=== PATIENT | female | born 1995 | race Caucasian/White ===

== ENCOUNTER 2018-10-23 04:41 | Emergency (ER) | payer MEDICAID ==
[2018-10-23 04:49] VITALS: BP 119/82
--- NOTE | 2018-10-23 04:52 | ED Physician Documentation ---
PD HPI HEENT - Stated complaint Stated Complaint: L EAR PAIN - Chief complaint Chief Complaint: Heent - History obtained from History obtained from: Patient - History of Present Illness Timing - onset: How many days ago (2) Timing - duration: Days (2) Timing - details: Gradual onset, Still present Location: Left ear Improves: Nothing Associated symptoms: Fever, Congestion, Rhinorrhea, Cough Recently seen: Not recently seen - Additional information Additional information: This is a 22-year-old presents with her and 3-month old complaints that her left ear has been hurting and throbbing for the past 2 days. It so uncomfortable now that she cannot sleep. She had a recent cold with a sore throat, headache, fever nausea little bit of coughing. She was seen by her primary care provider not prescribed antibiotics. She feels like the cold it has improved drastically and she is no longer running fevers however the left ear pain is concerning. She had an ear infection back in 2017 and denies pressure equalization tubes. She is breast-feeding her . Review of Systems Constitutional: reports: Fever (None in the past 24 hours) Ears: reports: Ear pain Nose: reports: Congestion Throat: reports: Sore throat (Resolved) Respiratory: reports: Cough GI: denies: Abdominal Pain, Nausea, Vomiting : denies: Dysuria PD PAST MEDICAL HISTORY - Present Medications Home Medications: Ambulatory Orders Medication Instructions Recorded Confirmed Cefdinir 300 mg PO BID #20 capsule 10/23/18 - Allergies Allergies/Adverse Reactions: Allergies Allergy/AdvReac Type Severity Reaction Status Date / Time azithromycin [From Zithromax] Allergy Hives Verified 10/23/18 04:48 Penicillins Allergy Unknown Verified 10/23/18 04:48 PD ED PE NORMAL - Vitals Vital signs reviewed: Yes - General General: Alert and oriented X 3, Well developed/nourished, Other (She looks uncomfortable. She keeps reaching up to her left ear.) - HEENT HEENT: Atraumatic, PERRL, EOMI, Moist mucous membranes, Pharynx benign, Other (There is serous effusion behind the right ear but good light reflex. The left tympanic membrane appears a little dull mild erythema but landmarks could be identified.) - Cardiac Cardiac: RRR, No murmur - Respiratory Respiratory: No respiratory distress, Clear bilaterally - Derm Derm: Normal color, Warm and dry - Neuro Neuro: Alert and oriented X 3 Results - Vitals Vitals: Vital Signs - 24 hr 10/23/18 04:44 Temperature 36.9 C Heart Rate 110 H Respiratory 20 Rate Blood Pressure 119/82 H O2 Saturation 97 PD MEDICAL DECISION MAKING - ED course Complexity details: d/w patient, d/w family ED course: Discussed with patient and her family. She would like to avoid medications as much as possible given the fact that she is breast-feeding. We also talked that she may be able to clear this with using anti-inflammatories steam and popping the ear to drain any fluid and relieve the pressure. She would like to go that route before just starting antibiotics. If it is an effective she is given a back-up prescription for amoxicillin. I have recommended that she take probiotics while on the antibiotic and for 2 weeks after if she begins taking it. We did give her 1 hydrocodone tablet tonight and she will decide whether she will pump and dump the breast milk. Departure - Departure Disposition: 01 Home, Self Care Clinical Impression: Acute ear pain Qualifiers: Laterality: left Qualified Code(s): H92.02 - Otalgia, left ear Condition: Good Instructions: ED Otitis Media Serous Adult, ED Ear Infec Wait See Abx Tx Ch Follow-Up: ETHAN BOONE [Primary Care Provider] - Prescriptions: Cefdinir 300 mg PO BID #20 capsule Comments: Home tonight and rest. Take ibuprofen [id number]. I would recommend you do some steam and try and start popping the ears to drain the fluid. If the pain is not relenting or you develop a fever you should again the antibiotics. Be certain to take probiotics while you are taking the antibiotic and for 2 weeks after. If you develop any rash while on the antibiotic immediately notify your primary care provider or return if needed here.
[2018-10-23] MEDS ORDERED: HYDROcod/ACETAM 5/325 MG TABLET PO STA (05:09)
== END 2018-10-23 05:24 | disposition home or self-care (01) ==
LOC: ED 04:41
DX: H92.02 Otalgia, left ear (principal)
CPT/HCPCS: 99282; 99284; A9270

== ENCOUNTER 2023-01-28 09:34 | Outpatient (CLI) | payer BC ==
[2023-01-28 09:49] LABS: BASOPHILS % (AUTO) 0.5 %; EOSINOPHILS # (AUTO) 0.1 10^3/uL (0.0-0.7); EOSINOPHILS % (AUTO) 1.8 %; HCT - HEMATOCRIT 39.3 % (37.0-47.0); HGB - HEMOGLOBIN 13.6 g/dL (12.0-16.0); LYMPHOCYTES # (AUTO) 1.4 10^3/uL (1.5-3.5); LYMPHOCYTES % (AUTO) 22.5 %; MEAN CORPUSCULAR HEMOGLOBIN 28.7 pg (27.0-31.0); MEAN CORPUSCULAR HGB CONC 34.6 g/dL (32.0-36.0); MEAN CORPUSCULAR VOLUME 82.9 fL (81.0-99.0); MEAN PLATELET VOLUME 10.3 fL (7.9-10.8); MONOCYTES # (AUTO) 0.4 10^3/uL (0.0-1.0); MONOCYTES % (AUTO) 6.9 %; NEUTROPHILS # (AUTO) 4.1 10^3/uL (1.5-6.6); NEUTROPHILS % (AUTO) 68.1 %; PLT - PLATELET COUNT 228 10^3/uL (130-450); RED BLOOD COUNT 4.74 10^6/uL (4.20-5.40); RED CELL DISTRIBUTION WIDTH 11.8 % (12.0-15.0); WHITE BLOOD COUNT 6.1 x10^3/uL (4.8-10.8)
[2023-01-29 06:10] LABS: RPR Non Reactive (Non Reactive)
[2023-01-29 07:10] LABS: HBsAG SCREEN Negative (Negative)
[2023-01-29 08:09] LABS: HCV AB Non Reactive (Non Reactive); HIV SCREEN 4TH GENERATION Non Reactive (Non Reactive)
[2023-01-29 09:10] LABS: VARICELLA-ZOSTER AB IGG 1481 index (Immune >165)
== END 2023-01-28 09:35 | disposition home or self-care (01) ==
LOC: LAB 09:34
PROVIDERS: ATTEND Nurse Practitioner Obstetrics & Gynecology
DX: Z36.89 Encounter for other specified antenatal screening (principal)
CPT/HCPCS: 36415; 85025; 86592; 86762; 86787; 86803; 86850; 86900; 86901; 87340; 87389

== ENCOUNTER 2023-04-08 14:56 | Outpatient (CLI) | payer BC ==
--- NOTE | 2023-04-08 19:56 | Ultrasound Report ---
PROCEDURE: OB Anatomy Scan INDICATIONS: SUPERVISION OF OUTSIDE/PRIOR DATING DATA: Last menstrual period (LMP): 11/28/2022. LMP-based estimated date of delivery (MIRI): 08/27/2023. First dating scan (date and location): 01/15/2023 (images not available). Estimated date of delivery (MIRI) from first dating scan: 08/26/2023. The below data below was generated using the clinical MIRI of 08/26/2023 TECHNIQUE: Real-time scanning was performed of the fetus, with image documentation and biometric measurements. Endovaginal scanning: Not performed. COMPARISON: None. FINDINGS: General: A single living intrauterine gestation is present. Presentation: Vertex Placenta: Placental position is posterior, without previa. Amniotic fluid index: 11.6 cm, within normal limits for gestational age. heart rate: 157 beats per minute. Maternal cervical canal: 4.1 cm long; normal length is 2.5 cm or more. biometrics: Biparietal diameter: 4.2 cm, 18 weeks 5 days, 11 percentile Head circumference: 16.6 cm, 19 weeks 2 days, 19th percentile Abdominal circumference: 14.3 cm, 19 weeks 5 days, 38th percentile Femur length: 3.2 cm, 19 weeks 6 days, 44th percentile Clinically estimated gestational age: 19 weeks 6 days Composite gestational age from present scan: 19 weeks 3 days Estimated weight and percentile: 308 g, 36th percentile Measurement variability in biometric dating: +/- 10 days from 12-20 weeks gestation, +/- 2 weeks from 20-30 weeks gestation, +/- 3 weeks at 30 weeks gestation or later. Anatomic survey: Neuro: Ventricles are normal at less than 10 mm. Cisterna magna is normal at 3-11 mm. Cerebellum i s normal in size and morphology. Nuchal skin fold: Normal at less than 6 mm between 14 and 20 weeks gestational age. Face: Nose and lips, facial profile are normal. Spine: No evidence for spina bifida. Heart: 4-chambered heart is present, with normal ventricular outflow tracts. Diaphragm: Diaphragm is intact. Stomach: Left-sided stomach is present. Kidneys: No hydronephrosis. Normal is less than 5 mm in 2nd trimester, less than 7 mm in 3rd trimester. Cord: 3 vessel cord has orthotopic insertion. Bladder: Normal in size. Extremities: All 4 extremities are visualized. IMPRESSION: 1.Single live intrauterine with appropriate growth. 2. anatomic survey is within normal limits. Reviewed by: Andrew Castellanos MD on 04/08/2023 7:55 PM PST Approved by: Andrew Castellanos MD on 04/08/2023 7:55 PM PST Station ID: [id number]
== END 2023-04-08 14:57 | disposition home or self-care (01) ==
LOC: DI 14:56
PROVIDERS: ATTEND Nurse Practitioner Obstetrics & Gynecology
DX: Z34.02 Encounter for supervision of normal first pregnancy, second trimester (principal); Z36.89 Encounter for other specified antenatal screening

== ENCOUNTER 2023-05-10 15:07 | Outpatient (CLI) | payer BC ==
[2023-05-10 19:52] LABS: BASOPHILS % (AUTO) 0.5 %; EOSINOPHILS # (AUTO) 0.2 10^3/uL (0.0-0.7); EOSINOPHILS % (AUTO) 2.8 %; HCT - HEMATOCRIT 37.7 % (37.0-47.0); HGB - HEMOGLOBIN 12.4 g/dL (12.0-16.0); LYMPHOCYTES # (AUTO) 1.7 10^3/uL (1.5-3.5); LYMPHOCYTES % (AUTO) 21.5 %; MEAN CORPUSCULAR HEMOGLOBIN 29.5 pg (27.0-31.0); MEAN CORPUSCULAR HGB CONC 32.9 g/dL (32.0-36.0); MEAN CORPUSCULAR VOLUME 89.8 fL (81.0-99.0); MEAN PLATELET VOLUME 10.7 fL (7.9-10.8); MONOCYTES # (AUTO) 0.6 10^3/uL (0.0-1.0); MONOCYTES % (AUTO) 7.5 %; NEUTROPHILS # (AUTO) 5.3 10^3/uL (1.5-6.6); NEUTROPHILS % (AUTO) 67.2 %; PLT - PLATELET COUNT 212 10^3/uL (130-450); RED CELL DISTRIBUTION WIDTH 13.1 % (12.0-15.0); WHITE BLOOD COUNT 7.9 x10^3/uL (4.8-10.8)
[2023-05-10 20:10] LABS: ALBUMIN 3.7 g/dL (3.2-5.5); ALBUMIN/GLOBULIN RATIO 1.3 (1.0-2.2); BILIRUBIN,TOTAL 0.3 mg/dL (0.2-1.0); CALCIUM 8.9 mg/dL (8.5-10.3); CREATININE 0.5 mg/dL (0.6-1.3); POTASSIUM 3.9 mmol/L (3.5-4.5); TOTAL PROTEIN 6.6 g/dL (6.4-8.9)
== END 2023-05-10 15:08 | disposition home or self-care (01) ==
LOC: LAB.S 15:07
PROVIDERS: ATTEND Emergency Medicine
DX: R10.11 Right upper quadrant pain (principal)
CPT/HCPCS: 36415; 80053; 83690; 85025

== ENCOUNTER 2023-05-11 21:00 | Outpatient (CLI) | payer BC ==
[2023-05-11] MEDS: SIMETHICONE CHEW 80 MG TABLET PO PRN (21:24)
[2023-05-11] MEDS: SODIUM CHLORIDE FLUSH 0.9% 10 ML SYRINGE IVP PRN (21:31)
[2023-05-11 21:37] VITALS: BP 139/91
== END 2023-05-11 22:00 | disposition short-term general hospital (02) ==
LOC: WFO 21:00 → FBP 21:02 → WFO 22:00
PROVIDERS: ATTEND Nurse Practitioner Obstetrics & Gynecology
DX: O99.891 Other specified diseases and conditions complicating pregnancy (principal); R10.10 Upper abdominal pain, unspecified; N13.30 Unspecified hydronephrosis; Z3A.24 24 weeks gestation of pregnancy
CPT/HCPCS: 36415; 76705; 80053; 81003; 83690; 85025; 93005; 99284; A9270; 59025; 81001; 87086; 99214

== ENCOUNTER 2023-05-11 21:59 | Emergency (ER) | payer BC ==
--- NOTE | 2023-05-11 22:16 | ED Physician Documentation ---
PD HPI ABD PAIN - Stated complaint Stated Complaint: PREG/ABD PX - Chief complaint Chief Complaint: General - History obtained from History obtained from: Patient - Additional information Additional information: HPI from patient. Patient complains of episodic epigastric pain over the past 4 days. The first 2 episodes were associated with p.o. intake, but gurvinder's episode, which began at approximately 6 PM, was while at home at rest and not during p.o. intake. The pain radiates to her back and is associated with nausea but no vomiting. She has not had this pain before 4 days ago. The patient is currently , 24 weeks 4 days. . Patient denies vaginal bleeding. She has not noticed decreased movement. She was initially sent from front desk host triage to air lift operator floor and was assessed there, cleared from air lift operator standpoint and thus sent to ED for further evaluation. Review of Systems Constitutional: denies: Fever, Chills, Sweats GI: reports: Abdominal Pain, Nausea. denies: Vomiting, Constipation, Diarrhea : reports: Now EGA (24w4d). denies: Dysuria PD PAST MEDICAL HISTORY - Past Medical History Past Medical History: No - Past Surgical History Past Surgical History: Yes - Allergies Allergies/Adverse Reactions: Allergies Allergy/AdvReac Type Severity Reaction Status Date / Time azithromycin [From Zithromax] Allergy Hives Verified 05/11/23 22:12 Penicillins Allergy Unknown Verified 05/11/23 22:12 - Social History Does the pt smoke?: No Smoking Status: Never smoker Does the pt drink ETOH?: Yes Does the pt have substance abuse?: No PD ED PE NORMAL - Vitals Vital signs reviewed: Yes - General General: Alert and oriented X 3, No acute distress, Well developed/nourished - Cardiac Cardiac: RRR, No murmur - Respiratory Respiratory: No respiratory distress, Clear bilaterally - Abdomen Abdomen: Soft, Non distended, Other (mild epigastric tenderness without rebound or guarding) Results - Vitals Vitals: Vital Signs - 24 hr 05/11/23 05/11/23 05/11/23 22:00 22:53 23:39 Temperature 36.4 C L Heart Rate 86 77 98 Respiratory 17 18 18 Rate Blood Pressure 126/76 122/82 H 126/82 H O2 Saturation 99 97 98 Oxygen O2 Source Room air - Labs Labs: Laboratory Tests 05/11/23 05/11/23 05/11/23 22:20 22:52 22:52 WBC 8.5 RBC 3.99 L Hgb 11.7 L Hct 35.0 L MCV 87.7 MCH 29.3 MCHC 33.4 RDW 12.7 Plt Count 207 MPV 10.2 Neut # (Auto) 5.5 Lymph # (Auto) 2.1 [place] # (Auto) 0.6 Eos # (Auto) 0.2 Baso # (Auto) 0.0 Absolute Nucleated RBC 0.00 Nucleated RBC % 0.0 Sodium 135 Potassium 3.6 Chloride 105 Carbon Dioxide 23 Anion Gap 7.0 BUN 7 Creatinine 0.5 L Estimated GFR (MDRD) 149 Glucose 89 Calcium 9.1 Total Bilirubin 0.3 AST 10 ALT 10 Alkaline Phosphatase 68 Total Protein 6.4 Albumin 3.5 Globulin 2.9 Albumin/Globulin Ratio 1.2 Lipase 34 Urine Color YELLOW Urine Clarity CLEAR Urine pH 7.5 Ur Specific [place] 1.015 Urine Protein NEGATIVE Urine Glucose (UA) NEGATIVE Urine Ketones NEGATIVE Urine Occult Blood NEGATIVE Urine Nitrite NEGATIVE Urine Bilirubin NEGATIVE Urine Urobilinogen 0.2 (NORMAL) Ur Leukocyte Esterase NEGATIVE Ur Microscopic Review NOT INDICATED Urine Culture Comments NOT INDICATED - Rads (name of study) RUQ US Relevant Findings:: Prelim report reviewed, See rad report PD Medical Decision Making - ED course Complexity details: reviewed results, re-evaluated patient, considered differential, d/w patient ED course: No concerning or diagnostic findings on CBC, ER abdominal panel. The only abnormalities on these panels are insignificant (hemoglobin is 11.7, slightly below normal range; creatinine is low at 0.5). Normal urinalysis. A right upper quadrant ultrasound is performed and this is only notable for "mild right hydronephrosis is seen which may be secondary to " (per radiologist interpretation). There is no evidence of gallstones. Renal colic seems unlikely given her pain is mostly in the epigastric area. Furthermore, there is no hematuria on the urinalysis. I discussed the test results with the patient and conversation turns to pain control. Patient tells me that she would prefer to have take-home pain medication so that she can drive home if the plan is discharge at this point. The patient is not in any apparent distress, and abdominal exam is unchanged (epigastric tenderness that is mild and without rebound/guarding). Further emergent testing unlikely to yield specific diagnosis, particularly that would require targeted/specific treatment. Patient is given take-home pack of vicodin but declines rx. Return precautions are discussed and she is instructed to contact her air lift operator to arrange for next available appointment for reevaluation. Departure - Departure Disposition: 01 Home, Self Care Clinical Impression: Abdominal pain in Qualifiers: Trimester: second trimester Qualified Code(s): O26.892 - Other specified related conditions, second trimester Condition: Good Instructions: ED Epigastric Pain UKO Comments: There were no concerning or diagnostic findings on tonight's tests including the blood tests, urinalysis, and the ultrasound. The cause of your abdominal pain is not apparent at this time. Contact your LINE INSPECTOR in the morning when the office opens to arrange for next available appointment for reevaluation. Forms: PCP List Discharge Date/Time: 05/12/23 00:30
--- NOTE | 2023-05-11 22:19 | PROVIDER PROGRESS NOTE ---
- HPI Chief Complaint: GI symptoms - Procedures OB Procedure Performed: NST NST Procedure: FHR baseline 140s,moderate variability, + accels, no decels No contractions appreciated via tocometry - Plan Plan: S: Zulma presents to [facility] to rule out labor secondary to upper abdominal pain that radiates to her back. She denies vaginal bleeding, leakage of fluid or contractions. She reports the pain is constant and periods of increase severity but remains consistently present. She states she has had intermittent kevin woodson contractions throughout her second trimester but states they occur approximately once every 3-5 days and are mild. She has a hx of 2 unmedicated vaginal deliveries and states she is very confident that this pain is not the same as labor pain. She reports +FM. She initially noted the pain 4 days ago and states it was 9/10 on a pain scale. She had not been exposed to anyone with similar symptoms. She states she initially thought she over ate and then induced vomiting which she felt relieved some of the pressure but the pain remained. She was eventually able to rest and fall asleep as the pain subsided. The following morning when she woke up the pain was there but more dull and she was easily able to cope. She states following lunch her pain increased again. She presented to urgent care and was told her pain was related to acid reflux. She was encouraged to take TUMS and Pepcid which did not improve her pain. She reports tonight before dinner she noticed the pain starting again. She ate a couple of potatoes and a small salad with non-fat dressing and then approximately 30 minutes later the pain became severe. Her returned home from work and she felt worried enough to present to the ED for evaluation. She denies vaginal discharge. She denies urinary symptoms, she reports normal BMs. O: NST reactive/appropriate for 24 wks gestation FHR baseline 140s, moderate variabiilty, + accels, no decels No contractions appreciated via tocometry Heart RRR w/o M/G/R, lungs CTAB Abdomen gravid, soft A: 27yo @ 24.4wks gestation Upper, mid-abdominal pain P: labor ruled out Pt released from OB triage to emergency department.
[2023-05-11 23:14] LABS: BASOPHILS % (AUTO) 0.5 %; EOSINOPHILS # (AUTO) 0.2 10^3/uL (0.0-0.7); EOSINOPHILS % (AUTO) 2.7 %; HGB - HEMOGLOBIN 11.7 g/dL (12.0-16.0); LYMPHOCYTES # (AUTO) 2.1 10^3/uL (1.5-3.5); LYMPHOCYTES % (AUTO) 25.1 %; MEAN CORPUSCULAR HEMOGLOBIN 29.3 pg (27.0-31.0); MEAN CORPUSCULAR HGB CONC 33.4 g/dL (32.0-36.0); MEAN CORPUSCULAR VOLUME 87.7 fL (81.0-99.0); MEAN PLATELET VOLUME 10.2 fL (7.9-10.8); MONOCYTES # (AUTO) 0.6 10^3/uL (0.0-1.0); MONOCYTES % (AUTO) 7.2 %; NEUTROPHILS # (AUTO) 5.5 10^3/uL (1.5-6.6); NEUTROPHILS % (AUTO) 64.1 %; PLT - PLATELET COUNT 207 10^3/uL (130-450); RED BLOOD COUNT 3.99 10^6/uL (4.20-5.40); RED CELL DISTRIBUTION WIDTH 12.7 % (12.0-15.0); WHITE BLOOD COUNT 8.5 x10^3/uL (4.8-10.8)
[2023-05-11 23:17] LABS: ALBUMIN 3.5 g/dL (3.2-5.5); ALBUMIN/GLOBULIN RATIO 1.2 (1.0-2.2); BILIRUBIN,TOTAL 0.3 mg/dL (0.2-1.0); CALCIUM 9.1 mg/dL (8.5-10.3); CREATININE 0.5 mg/dL (0.6-1.3); POTASSIUM 3.6 mmol/L (3.5-4.5); TOTAL PROTEIN 6.4 g/dL (6.4-8.9)
--- NOTE | 2023-05-11 23:48 | Ultrasound Report ---
PROCEDURE: Abdomen Limited INDICATIONS: abd. pain TECHNIQUE: Real-time focused scanning was performed of the abdomen, with image documentation. COMPARISONS: None. FINDINGS: Liver: Suboptimally visualized secondary to bowel gas. Liver is normal in size and homogeneous in ech otexture. Gallbladder: Unremarkable. Biliary ducts: Intrahepatic bile ducts are non-dilated. Extrahepatic bile duct caliber measures 2.5 mm. Normal is 6-7 mm or less in diameter, or 10 mm or less post-cholecystectomy. Pancreas: Not well visualized due to overlying bowel gas. Right kidney: Normal in size and echotexture. Right kidney measures 10.9 cm long. Mild right hydrone phrosis, may be secondary to . No nephrolithiasis. No solid masses. No complex renal cystic lesions which require follow-up. IVC: Intrahepatic inferior vena cava is patent. Miscellaneous: No free abdominal fluid. Intrauterine is seen with heart rate of 145. IMPRESSION: 1.Mild right hydronephrosis is seen which may be secondary to . 2.Intrauterine is seen with heart rate of 145. Reviewed by: Walker Lawson MD on 05/11/2023 11:47 PM PST Approved by: Walker Lawson MD on 05/11/2023 11:47 PM PST Station ID: [id number]
[2023-05-12] MEDS: HYDROcod/ACET 5/325 Prepack 4 PO STA (00:06)
[2023-05-12 00:17] VITALS: BP 126/82; O2SAT 98
[2023-05-12 00:21] LABS: BILIRUBIN,URINE NEGATIVE (NEGATIVE); GLUCOSE, URINE (UA) NEGATIVE (NEGATIVE); KETONES,URINE (UA) NEGATIVE (NEGATIVE); LEUKOCYTE ESTERASE, URINE NEGATIVE (NEGATIVE); NITRITE,URINE NEGATIVE (NEGATIVE); OCCULT BLOOD,URINE NEGATIVE (NEGATIVE); PH,URINE 7.5 PH (5.0-7.5); PROTEIN,URINE NEGATIVE (NEGATIVE); UROBILINOGEN,URINE 0.2 (NORMAL) E.U./dL (NORMAL)
[2023-05-12 00:23] LABS: CLARITY,URINE CLEAR (CLEAR)
== END 2023-05-12 00:30 | disposition home or self-care (01) ==
LOC: ED 21:59
DX: O99.891 Other specified diseases and conditions complicating pregnancy (principal); N13.30 Unspecified hydronephrosis; Z3A.24 24 weeks gestation of pregnancy
CPT/HCPCS: 36415; 80053; 81001; 81003; 83690; 85025; 87086; 93005; 99284

== ENCOUNTER 2023-05-17 08:17 | Outpatient (CLI) | payer BC ==
[2023-05-17 09:27] LABS: HCT - HEMATOCRIT 35.7 % (37.0-47.0); MEAN CORPUSCULAR HEMOGLOBIN 29.6 pg (27.0-31.0); MEAN CORPUSCULAR HGB CONC 33.6 g/dL (32.0-36.0); MEAN CORPUSCULAR VOLUME 87.9 fL (81.0-99.0); MEAN PLATELET VOLUME 9.9 fL (7.9-10.8); RED BLOOD COUNT 4.06 10^6/uL (4.20-5.40); RED CELL DISTRIBUTION WIDTH 12.7 % (12.0-15.0); WHITE BLOOD COUNT 7.2 x10^3/uL (4.8-10.8)
== END 2023-05-17 08:18 | disposition home or self-care (01) ==
LOC: LAB 08:17
PROVIDERS: ATTEND Nurse Practitioner Obstetrics & Gynecology
DX: Z36.9 Encounter for antenatal screening, unspecified (principal)
CPT/HCPCS: 36415; 82950; 85027

== ENCOUNTER 2023-08-25 12:05 | Inpatient (IN) | payer BC ==
--- NOTE | 2023-08-25 12:08 | HISTORY & PHYSICAL EXAMINATION ---
Admit History - : 3 Parity: 2 Premature: 0 Ectopic: 0 : 0 Care: positive: [facility] Risk/History: positive: None Complications This : positive: None Smoking Status: Never smoker - Mother's Labs Mother's Blood Type: positive: B Mother's RH: positive: Negative GBS: positive: Group B Step Negative Rubella Status: positive: Immune - Other Maternal History Other Maternal History: HPI: This 27 yo @ 39+5weeks by 8+1 week ultrasound. She presented to clinic today for routine care. [place] intermittently for the past several days. She was doing the "[place] circuit" last night and noticed onset of leakage of clear vaginal fluid at 2300 which has continued and feels different than her mucus plug, denies any recent intercourse. She was encouraged to make arrangements to be admitted to [facility] for labor and delivery management. She has been a patient of [facility] for the duration of her which has remained uncomplicated No Headache, visual changes or right upper quadrant abdominal pain. Denies nausea and vomiting. Denies urinary urgency or dysuria. ROS: All other symptoms reviewed and were negative except per HPI. Dating criteria: LMP: 11/28/2022 ---> MIRI by LMP 09/04/2023 (not concordant with [place] dating) Initial u/s @ 8+1 wks dates with MIRI 08/27/2023 serial Exams agree OB Hx: Term NSVB x2. SAB x0. Last PAP 2020- WNL. Denies history of gonorrhea, chlamydia genital herpes, oral herpes or other STI. Sexual partner does NOT have HSV (oral or genital) G1: (06/18/2018) . Small laceration with repair G2: (09/13/2020) Induction, some perineal repair G3: current Medical Hx: Recurrent ovarian cysts Surgical Hx: R ovarian cyst removal 2020. Social Hx: Monogamous with male partner. Stopped drinking alcohol due to . Denies current use of tobacco, marijuana or other recreational drugs. Former tobacco user. Reports that she is safe in current relationship. Family Hx: No significant hx. Denies family history of congenital anomalies, Cystic Fibrosis or chromosomal abnormalities Allergies: Penicillin, erythromycin rash Medications: B12 (500mcg/gummy), vitamin Prepregnancy BMI: 30 Course: Blood type = B negative, Rhogam given 06/11/23 Antibody negative . Rubella immune, Varicella Immune Hep B neg, Hep C neg HIV non-reactive, RPR non-reactive GCCT negative Genetic screening: Declines genetic testing, carrier screening and MsAFP. FAS: Date WNL (with exception of) F/U u/s: Posterior placenta, no previa, size c/w (EFW 36%). AARTI WNL. 3VC. glucola: 130 Tdap: 06/11/2023 GBS NEG Physical exam: Normocephalic, atraumatic Heart RRR w/o M/G Lungs CTAB Abdomen gravid, soft, nontender. EFW 3700g FHR baseline 150, moderate variability, + accelerations, no decelerations Contractions palpate moderate every minutes with soft resting tone SVE 4/80/-2, vertex, membranes ruptured, possible forebag Bilateral LE's no edema Mood is good. Assessment: HPI: This 27 yo @ 39+5weeks by 8+1 week ultrasound. Early labor FHR 150's, Cat I GBS NEG Plan: Admit to [facility] for labor management. Given potential time since ROM, and patient agreement with augmentation, 25mcg misoprostol x1 dose @1300 then reevaluation . Continuous EFM, intermittent FM later if indicated. Jacuzzi PRN. Nitrous oxide PRN. Anticipate . 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
[2023-08-25] MEDS ORDERED: lidocaine 1% 20 ML MDV ID PRN (12:10)
[2023-08-25] MEDS ORDERED: OXYTOCIN 10 UNIT/ML VIAL IM PRN (12:10)
[2023-08-25] MEDS ORDERED: TERBUTALINE 1 MG/ML VIAL SUBQ PRN (12:10)
[2023-08-25] MEDS ORDERED: TRANEXAMIC ACID IN NACL 1,000 MG/100 ML BAG IV PRN (12:10)
[2023-08-25] MEDS ORDERED: SODIUM CHLORIDE FLUSH 0.9% 10 ML SYRINGE IVP PRN (12:10)
[2023-08-25] MEDS ORDERED: miSOPROStoL 200 MCG TABLET PR PRN (12:10)
[2023-08-25] MEDS ORDERED: LACTATED RINGERS 1,000 ML IV PRN (12:10)
[2023-08-25] MEDS ORDERED: CARBOPROST TROMETHAMINE 250 MCG/ML VIAL IM PRN (12:10)
[2023-08-25] MEDS ORDERED: fentaNYL 100 MCG/2 ML VIAL IVP PRN (12:10)
[2023-08-25] MEDS ORDERED: METHYLERGONOVINE 0.2 MG/ML VIAL IM PRN (12:10)
[2023-08-25 12:55] LABS: BASOPHILS % (AUTO) 0.3 %; EOSINOPHILS # (AUTO) 0.1 10^3/uL (0.0-0.7); EOSINOPHILS % (AUTO) 1.3 %; HCT - HEMATOCRIT 34.1 % (37.0-47.0); HGB - HEMOGLOBIN 11.1 g/dL (12.0-16.0); LYMPHOCYTES # (AUTO) 1.5 10^3/uL (1.5-3.5); LYMPHOCYTES % (AUTO) 19.2 %; MEAN CORPUSCULAR HEMOGLOBIN 27.3 pg (27.0-31.0); MEAN CORPUSCULAR HGB CONC 32.6 g/dL (32.0-36.0); MONOCYTES # (AUTO) 0.5 10^3/uL (0.0-1.0); MONOCYTES % (AUTO) 6.9 %; NEUTROPHILS # (AUTO) 5.6 10^3/uL (1.5-6.6); NEUTROPHILS % (AUTO) 71.8 %; PLT - PLATELET COUNT 208 10^3/uL (130-450); RED BLOOD COUNT 4.06 10^6/uL (4.20-5.40); RED CELL DISTRIBUTION WIDTH 12.8 % (12.0-15.0); WHITE BLOOD COUNT 7.8 x10^3/uL (4.8-10.8)
[2023-08-25] MEDS: miSOPROStoL 100 MCG TABLET BC SCH (12:57)
--- NOTE | 2023-08-25 17:47 | PROVIDER PROGRESS NOTE ---
Labor Progress Note - Uterine Monitoring Uterine Monitoring Mode: positive: External toco (Note created in error)
--- NOTE | 2023-08-25 17:48 | PHARMACY PROGRESS NOTE ---
- Best Possible Medication History Admit Date and Time: 08/25/23 1210 Processed by: Pharmacy Medications reviewed in ED?: No Medication History completed: Yes Patient Interview: Pt unable to participate Secondary Source(s): Physician records, Pharmacy records, Insurance records As the person ultimately responsible for medication therapy, providers are able to order a medication from an existing home medication list in [facility] via the "Reconcile Routine" prior to Confirmation of that medication by database support. Such practice is discouraged except when the physician, in their clinical judgment, deems that a medical need exists for a medication without regard to previous use.
--- NOTE | 2023-08-25 17:54 | PROVIDER PROGRESS NOTE ---
Labor Progress Note - Uterine Monitoring Uterine Monitoring Mode: positive: External toco Contraction Frequency (min/apart): 1-4.5 Contraction Intensity: positive: Mild Uterine Resting Tone: positive: Soft - Monitoring Monitor Mode: positive: External ultrasound Heart Rate Baseline: 140 Heart Rate Variability: positive: Moderate (6-25 bmp) Accelerations: positive: Present, 15x15 Decelerations: positive: None Strip Review: positive: Category I - Vaginal Exam Dilation (in cm): 5.5 Effacement (%): 80 Station: -2 Cervical Position: Midposition - Labor Progress Note Labor Progress Note/Additional Text: S: Ambulating in room and changing positions frequently. Describes her discomfort as minimal. Laughing with support persons. Just ate her evening meal. Coping well. Feels well informed. O: FHR baseline 140-145, moderate variability, + accels, - decels. Contractions irregular 1-4.5cm SVE 5.5/80/-2, midposition Vertex. Likely high leak. AROM of forebag S/p 1 doses 25mcg BC misoprostol A: 27yo @ 38+5wks gestation by 1st trimester U/S FHR Category I Rh Neg P: Wait 1 hour following AROM of forebag. Then misoprostol dose repeated. Continuous monitoring. Nitrous per patient request encourage continued movement and positional change Anticipate .
[2023-08-25] MEDS: SODIUM CHLORIDE FLUSH 0.9% 10 ML SYRINGE IVP SCH (19:59)
[2023-08-25] MEDS: OXYTOCIN/SODIUM CHLORIDE 500 ML IV PRN (20:06)
--- NOTE | 2023-08-25 20:22 | DELIVERY NOTE ---
Delivery Note - Labor Labor: positive: Spontaneous - Delivery Method Delivery Method: positive: Spontaneous vaginal delivery - Presentation Presentation: positive: ANDREW - right occiput anterior - Nuchal Cord Nuchal Cord: positive: None - Anesthetic Anesthetic Type: - Amniotic Fluid Description Amniotic Fluid Description: positive: Clear - Laceration Laceration: positive: None - Littlefield Little[place]: positive: Bulb syringe, Stimulated, Warmed, [place] used [place] sex: positive: Female - Cord Cord: positive: 3 vessels - Placenta Placenta: positive: Intact - Estimated Blood Loss Estimated Blood Loss (in cc): 350 - Post Delivery Events Post Delivery Events: positive: Shoulder dystocia - Delivery Comments (Free Text/Narrative) Delivery Comments (Free Text/Narrative): This 27-year-old, G 3 P 2 . @ 39+ 5 gestation by first trimester ultrasound. Presented @ after SROM at approximately X last night. Cervix was 4/80/-2. Vertex presentation by liam's and exam. GBS negative, treatment not indicate d. FHR pattern demonstrated 140 baseline in a category I prior to second stage. Normal labor course. Coped well with nitrous Forebag ruptured @ 1707. She then progressed to began pushing (and presumed complete) and ready to deliver. : Patient pushed and delivered in hands and knees. After assessing the patient and attempting rotational maneuvers, the anterior shoulder had already been rotated out of impaction, but the large body was not delivering with gentle traction. I was able to place my fingers under the posterior axilla and deliver the posterior shoulder with gentle traction. The rest of the body delivered thereafter and was placed on mother's chest where she was stimulated and responded well. In total 30 seconds elapse for delivery of head to delivery of body including resolution of shoulder dystocia. Delivery of viable female infant on 08/25/2023 @ 1941. No nuchal cord. The was placed on maternal abdomen, stimulated, dried and placed skin to skin. Apgars 8 @ 1 min, and 9 @ 5 minutes. Pitocin administered via IV for hemostasis. The umbilical cord was allowed to stop pulsating at which time it was doubly clamped by delivering provider and cut by FOB. 3VC. Cord blood was obtained. Fundal massage and gently cord traction applied for active management of the third stage, placenta delivered spontaneously and intact @1950. EBL 350cc. Placenta was WAS NOT sent to pathology. Thirty units of Pitocin were added to the IV fluid and allowed to run freely. Uterine massage was performed until uterus was deemed firm. Upon re-inspection the patient was hemostatic. Uterus again massaged and found to be firm. Needle and sponge counts were correct. Vaginal, rectal, perineal tissue intact. Skin to skin initiated. Family bonding well. Both mother and baby are in stable condition. SCOTTIE Parekh, Student Nurse Research Scholar
[2023-08-25] MEDS: ACETAMINOPHEN 500 MG TABLET PO PRN (20:42)
[2023-08-25] MEDS: IBUPROFEN 800 MG TABLET PO SCH (20:45)
--- NOTE | 2023-08-26 10:11 | Discharge Plan ---
Discharge Plan Problem Reviewed?: No Disposition: Home, Self Care Condition: Good Diet: Regular Activity Restrictions: No Restrictions Shower Restrictions: No Driving Restrictions: No Weight Bearing: Full Weight Instruction Topics: Vaginal After, Nutrition , Self Care No Smoking: If you smoke, Please STOP! Call for help. Follow-up with: Vanessa Rothman CNM, SCOTTIE [Provider Admit Priv/Credential] - 1 Week
--- NOTE | 2023-08-26 10:23 | DISCHARGE SUMMARY ---
Discharge Summary Condition at Discharge: Good Discharge Disposition: 01 Home, Self Care - HOSPITAL COURSE Hospital Course: Date of Admission: 08/25/2023 Date of Discharge: 08/26/2023 Diagnosis on Admission: 1. 27yo @ 39.5wk gestation by 8.1wk U/S 2. Early labor 3. SROM 4. FHR Category I 5. GBS negative Diagnosis on Discharge: 1. 27yo PPD#1 s/p TSVB viable female 2. 3. Normal recovery Brief History: She is a patient of [facility] who presented on 08/25/2023 with SROM and in early labor. Cervix was 4/80/-2 and vertex with leakage of clear vaginal fluid. FHR maintained Category I pattern throughout labor. She received 1 dose of 25mcg of BC misoprostol followed by release of forebag of amniotic membranes. She progressed to spontaneously deliver a viable female on 08/25/2023 at 1941. Apgars were 8/9 at 1 and 5 minutes respectively. Perineum intact and EBL 350mL. She has been doing well in her course. She is ambulating and tolerating a regular diet. She is urinating without difficulty and her lochia is normal. Her pain is well controlled with oral medications. She is without difficulty and she is bonding well with her baby. She will be discharged home today on day #1 with instructions to continue taking her vitamin while and to continue taking ibuprofen and tylenol over the counter as needed for pain management. She intends to follow up with myself in 1 week for routine visit or sooner if needed. She has been given precautions to call if she has any worsening fevers, chills, abdominal pain, increased vaginal bleeding or foul smelling vaginal lochia. Physical exam: Normocephalic, atraumatic. Heart RRR w/o M/G/R, lung CTAB. Abdomen soft and nontender, fundus firm a U-1, perineum intact, light lochia rubra. Bilateral LE's trace edmea. Mood is good. - ALLERGIES Allergies/Adverse Reactions: Allergies Allergy/AdvReac Type Severity Reaction Status Date / Time azithromycin [From Zithromax] Allergy Hives Verified 05/11/23 22:12 Penicillins Allergy Unknown Verified 05/11/23 22:12 - MEDICATIONS Home Medications: Ambulatory Orders Medication Instructions Recorded Confirmed Cyanocobalamin (Vitamin B-12) 500 mcg PO DAILY 08/25/23 08/25/23 [Vitamin B-12] Famotidine [Pepcid] See Rx Instructions .ROUTE .COMPLEX 08/25/23 08/25/23 Pnv No.95/Ferrous Fum/Folic AC 1 tab PO DAILY 08/25/23 08/25/23 [ Tablet] - LABS Result Diagrams: 08/25/23 12:30
[2023-08-26 12:13] VITALS: BP 123/74; O2SAT 98
--- NOTE | 2023-08-26 18:01 | Labor Flowsheet ---
Labor Flowsheet Datetime Report Generated by CPN: 08/26/2023 18:00 Datetime: 08/26/2023 12:05 VITAL SIGNS NBP Sys/Miracle/Mean (mmHg): 123 : 74 : 85 Pulse: 97 LaborFlag: Labor Datetime: 08/25/2023 21:14 Membranes Ruptured Date/Time: 08/25/2023 17:07 Datetime: 08/25/2023 19:51 Stage 2 Comments: placenta 1951 Datetime: 08/25/2023 19:40 ASSESSMENT A Monitor Mode: Telemetry Variability: Moderate 6-25 bpm Comments: FHT seen 120s-150 PATIENT CARE Oxygen Method: Room Air Datetime: 08/25/2023 19:35 UTERINE ACTIVITY Monitor Mode: External Frequency (min): 2 Quality: Strong Duration (sec): 80-120 Pattern: Normal: <= 5 Contractions in 10 Minutes Resting Tone (Palpate): Relaxed Datetime: 08/25/2023 19:30 FHR Baseline Rate : 145 Accelerations: None Decelerations: Variable Actions for Decelerations: Hands and Knees Category: Category II Datetime: 08/25/2023 19:28 STAGE 2 Pushing: Urge to Push; Involuntary Pushing Pushing Position: Pushing with Contractions Pushing Progress: Descent with Pushing Datetime: 08/25/2023 19:18 Pain Relief Measures: Comfort Measures Pain Coping: Breathing Through Contractions Pain Assessment Comments: using nitrous, moaning through contractions Comfort Measures: Breathing/Relaxation Datetime: 08/25/2023 19:17 VAGINAL EXAM Dilatation (cm): 8.0 Effacement (%): 100 Station: -1 Exam by: Sotero WALL AND F[employer]OR TILER Datetime: 08/25/2023 18:49 COMMUNICATION Communication: Provider at Bedside Communication Comments: Stephan Bey at bedside Datetime: 08/25/2023 18:46 Patient Position/Activity: Hands-Knees Patient Care Comments: Nitros started Datetime: 08/25/2023 18:20 Vaginal Exam Comments: OK for pt. to go to br Datetime: 08/25/2023 17:57 Temperature (C): 37.1 PAIN Pain Scale: 2 Pain Presence: Intermittent Pain Type: Cramping Pain Location: Abdomen Pain Goal: 8 Datetime: 08/25/2023 17:14 Hygiene: Ernestina Care Datetime: 08/25/2023 17:07 Membrane Status: Ruptured Membranes Rupture Method: Artificial Amniotic Fluid Color: Clear Amniotic Fluid Amount: Large Amniotic Fluid Odor: None Cervix, Position: Midposition Membrane Comments: forebag Datetime: 08/25/2023 17:00 Contraction Comments: coupling Datetime: 08/25/2023 15:30 FHR Baseline Changes: No Baseline Change Datetime: 08/25/2023 15:04 Monitor Interventions for UA: Level Green Adjusted Datetime: 08/25/2023 12:57 MEDICATIONS Cervical Ripening Agents: Cytotec @ Medication Comments: BC Datetime: 08/25/2023 12:17 Stage of : Labor Datetime: 05/11/2023 21:23 SpO2 (%): 98
== END 2023-08-26 18:00 | disposition home or self-care (01) | DRG 807 ==
LOC: WFO 12:05 → FBP 12:06 → WFO 12:09 → FBP 12:10
PROVIDERS: ADMIT Nurse Practitioner Obstetrics & Gynecology; ATTEND Nurse Practitioner Obstetrics & Gynecology
PROC: 10907ZC Drainage of Amniotic Fluid, Therapeutic from Products of Conception, Via Natural or Artificial Opening (ICD-10-PCS; principal; 2023-08-25)
PROC: 10E0XZZ Delivery of Products of Conception, External Approach (ICD-10-PCS; 2023-08-25)
DX: O66.0 Obstructed labor due to shoulder dystocia (principal); Z37.0 Single live birth; Z3A.39 39 weeks gestation of pregnancy
CPT/HCPCS: 59409; 85025; 86850; 86900; 86901; A9270; J7120; 83033

== ENCOUNTER 2023-09-08 03:28 | Emergency (ER) | payer BC ==
[2023-09-08 03:42] VITALS: BP 128/79; O2SAT 100
[2023-09-08] MEDS: ONDANSETRON 4 MG/2 ML VIAL IVP STA (03:50)
[2023-09-08] MEDS: KETOROLAC 30 MG/ML VIAL IVP STA (03:50)
[2023-09-08 03:52] LABS: BASOPHILS % (AUTO) 0.5 %; EOSINOPHILS # (AUTO) 0.3 10^3/uL (0.0-0.7); EOSINOPHILS % (AUTO) 2.9 %; HCT - HEMATOCRIT 35.6 % (37.0-47.0); HGB - HEMOGLOBIN 11.6 g/dL (12.0-16.0); LYMPHOCYTES # (AUTO) 3.1 10^3/uL (1.5-3.5); LYMPHOCYTES % (AUTO) 36.6 %; MEAN CORPUSCULAR HEMOGLOBIN 26.7 pg (27.0-31.0); MEAN CORPUSCULAR HGB CONC 32.6 g/dL (32.0-36.0); MEAN PLATELET VOLUME 9.4 fL (7.9-10.8); MONOCYTES # (AUTO) 0.6 10^3/uL (0.0-1.0); MONOCYTES % (AUTO) 7.2 %; NEUTROPHILS # (AUTO) 4.5 10^3/uL (1.5-6.6); NEUTROPHILS % (AUTO) 52.6 %; PLT - PLATELET COUNT 275 10^3/uL (130-450); RED BLOOD COUNT 4.34 10^6/uL (4.20-5.40); RED CELL DISTRIBUTION WIDTH 12.3 % (12.0-15.0); WHITE BLOOD COUNT 8.6 x10^3/uL (4.8-10.8)
[2023-09-08 04:03] LABS: ALBUMIN/GLOBULIN RATIO 1.4 (1.0-2.2); BILIRUBIN,TOTAL 0.4 mg/dL (0.2-1.0); CALCIUM 9.6 mg/dL (8.5-10.3); CREATININE 0.8 mg/dL (0.6-1.3); POTASSIUM 3.7 mmol/L (3.5-4.5); TOTAL PROTEIN 6.8 g/dL (6.4-8.9)
--- NOTE | 2023-09-08 04:21 | ED Physician Documentation ---
PD HPI ABD PAIN - Stated complaint Stated Complaint: ABD PX - Chief complaint Chief Complaint: Abd Pain - History obtained from History obtained from: Patient - Additional information Additional information: Patient is a 27-year-old female who is approximately 2 weeks from a spontaneous vaginal delivery presenting for evaluation of right upper quadrant pain that started suddenly approximately 30 minutes prior to arrival. Patient states that she had similar episodes while she was and was evaluated once without a clear etiology. She states that this is the first time it has jurado ppened since she has delivered her baby. Delivery was uncomplicated. She denies any vaginal bleeding, dysuria or lower abdominal tenderness. She has associated nausea but no vomiting. She states that the pain is already starting to improve. She reports having had a prior ultrasound to evaluate her gallbladder without any abnormal findings. No fever, chest pain or shortness of air. She reports having tacos for dinner last night. She last ate anything around 9 PM. She is breast-feeding. Review of Systems Constitutional: denies: Fever Cardiac: denies: Chest pain / pressure Respiratory: denies: Dyspnea GI: reports: Abdominal Pain. denies: Vomiting : denies: Dysuria, Vaginal bleeding PD PAST MEDICAL HISTORY - Past Medical History Past Medical History: No - Past Surgical History Past Surgical History: Yes - Present Medications Home Medications: Ambulatory Orders Medication Instructions Recorded Confirmed Cyanocobalamin (Vitamin B-12) 500 mcg PO DAILY 08/25/23 08/25/23 [Vitamin B-12] Famotidine [Pepcid] See Rx Instructions .ROUTE .COMPLEX 08/25/23 08/25/23 Pnv No.95/Ferrous Fum/Folic AC 1 tab PO DAILY 08/25/23 08/25/23 [ Tablet] - Allergies Allergies/Adverse Reactions: Allergies Allergy/AdvReac Type Severity Reaction Status Date / Time azithromycin [From Zithromax] Allergy Hives Verified 09/08/23 03:38 Penicillins Allergy Unknown Verified 09/08/23 03:38 - Social History Does the pt smoke?: No Smoking Status: Never smoker Does the pt drink ETOH?: Yes Does the pt have substance abuse?: No PD ED PE NORMAL - General General: Alert and oriented X 3, No acute distress, Well developed/nourished - HEENT HEENT: Atraumatic - Neck Neck: Supple, no meningeal sign - Cardiac Cardiac: RRR, Strong equal pulses - Respiratory Respiratory: No respiratory distress, Clear bilaterally - Abdomen Abdomen: Normal bowel sounds, Soft, Non distended, Other (Mild right upper quadrant tenderness, no rebound, no guarding, no mass, no lower abdominal tenderness) - Derm Derm: Warm and dry - Neuro Neuro: Normal speech Results - Vitals Vitals: Vital Signs - 24 hr 09/08/23 09/08/23 03:36 03:39 Temperature 36.1 C L Heart Rate 70 72 Respiratory 18 Rate Blood Pressure 128/79 O2 Saturation 100 Oxygen O2 Source Room air - Labs Labs: Laboratory Tests 09/08/23 09/08/23 03:45 03:45 WBC 8.6 RBC 4.34 Hgb 11.6 L Hct 35.6 L MCV 82.0 MCH 26.7 L MCHC 32.6 RDW 12.3 Plt Count 275 MPV 9.4 Neut # (Auto) 4.5 Lymph # (Auto) 3.1 Gulf # (Auto) 0.6 Eos # (Auto) 0.3 Baso # (Auto) 0.0 Absolute Nucleated RBC 0.00 Nucleated RBC % 0.0 Sodium 139 Potassium 3.7 Chloride 106 Carbon Dioxide 24 Anion Gap 9.0 BUN 16 Creatinine 0.8 Estimated GFR (MDRD) 87 L Glucose 100 Calcium 9.6 Total Bilirubin 0.4 AST 28 ALT 15 Alkaline Phosphatase 115 Total Protein 6.8 Albumin 4.0 Globulin 2.8 Albumin/Globulin Ratio 1.4 Lipase 51 PD Medical Decision Making - ED course Complexity details: reviewed results, re-evaluated patient, d/w patient ED course: Patient presenting for evaluation of right upper quadrant pain. She is 2 weeks . Mild tenderness noted on exam but reports that pain is already starting to improve. CBC and chemistries were reviewed and without significant findings. She is feeling better after ketorolac and Zofran and repeat abdominal exam is with minimal tenderness. We discussed imaging and I did offer both CT and ultrasound imaging. She is aware that ultrasound is not available until 2 more hours.However as she is feeling much better and is breast-feeding as she would like to go home at this time. I feel this is reasonable given normal vital signs, labs and improving pain with benign exam. She plans to follow-up with her OB to discuss having further imaging done as an outpatient. She also reports that she is moving to [place] in a week. Patient is advised on concerning symptoms to return for. Departure - Departure Disposition: 01 Home, Self Care Clinical Impression: RUQ abdominal pain Condition: Stable Instructions: ED Abdominal Pain Female Non-Specific Abdominal Pain Comments: Your evaluated for pain in the right upper portion of your abdomen. Your labs are reassuring which included a CBC and chemistry panel. You were given an anti-inflammatory called ketorolac as well as antinausea medicine called Zofran. Your pain has significantly improved which is reassuring. We have offered shilpa ging with an ultrasound or CAT scan this evening but as the pain has greatly improved you have opted to hold off which I think is reasonable. I do think since you have had several of these episodes that you should have close follow- up for this and would likely need more testing such as an outpatient ultrasound now that you are no longer or further evaluation of your gallbladder. You may consider a low-fat diet to see if this helps prevent these episodes. Return to the emergency department with any recurrence or worsening symptoms. Forms: PCP List Discharge Date/Time: 09/08/23 04:24
== END 2023-09-08 04:24 | disposition home or self-care (01) ==
LOC: ED 03:28
DX: O90.9 Complication of the puerperium, unspecified (principal); R10.11 Right upper quadrant pain
CPT/HCPCS: 36415; 80053; 83690; 85025; 96374; 99283

== ENCOUNTER 2023-09-17 06:48 | Outpatient (CLI) | payer BC ==
--- NOTE | 2023-09-17 10:08 | Ultrasound Report ---
PROCEDURE: Abdomen Limited INDICATIONS: RUQ ABD PAIN TECHNIQUE: Real-time focused scanning was performed of the abdomen, with image documentation. COMPARISONS: Limited right upper quadrant ultrasound on May 11, 2023. FINDINGS: Liver: Liver is normal in size and homogeneous in echotexture. Liver parenchyma is diffusely echoge sarthak. Main portal vein is patent with hepatopedal flow. Gallbladder: Multiple gallstones. No wall thickening or pericholecystic fluid. Wall thickness is 2 mm . Biliary ducts: Intrahepatic bile ducts are non-dilated. Extrahepatic bile duct caliber measures mm. Normal is 6-7 mm or less in diameter, or 10 mm or less post-cholecystectomy. Pancreas: Visualized portions of the pancreas are sonographically normal. Right kidney: Normal in size and echotexture. Right kidney measures 10.6 cm long. No hydronephrosis or nephrolithiasis. No solid masses. No complex renal cystic lesions which require follow-up. IVC: Intrahepatic inferior vena cava is patent. Miscellaneous: No free abdominal fluid. IMPRESSION: 1.Cholelithiasis without acute cholecystitis. 2.Liver parenchyma is diffusely echogenic which may be seen in the setting of parenchymal disease suc h as steatosis. 3.Previously seen right-sided hydronephrosis has resolved. Reviewed by: Ramin Harris MD on 09/17/2023 10:06 AM PDT Approved by: Ramin Harris MD on 09/17/2023 10:06 AM PDT Station ID: [id number]
== END 2023-09-17 06:49 | disposition home or self-care (01) ==
LOC: DI 06:48
PROVIDERS: ATTEND Nurse Practitioner Obstetrics & Gynecology
DX: K80.20 Calculus of gallbladder without cholecystitis without obstruction (principal)